=== PATIENT | male | born 1970 | race Two or more races ===

== ENCOUNTER 2020-05-12 16:19 | Emergency (ER) | payer MEDICAID, OTHER ==
[~2020-05-12] VITALS: Ht 167.6 cm; Wt 86.2 kg
[2020-05-12] MEDS ORDERED: HYDROmorphone HCL 2 MG/ML VL IV ONE ×2 (17:30→20:15)
[2020-05-12] MEDS ORDERED: ONDANSETRON HCL 4 MG/2 ML VIAL IV ONE ×2 (17:30→20:15)
[2020-05-12 17:44] LABS: Basophils # (auto) 0.2 10 ^3/uL (0-0.2); Basophils % (auto) 2.7 % (0.0-2.0); Eosinophils # (auto) 0.1 10 ^3/uL (0-0.8); Eosinophils % (auto) 1.3 % (0.0-7.0); Hematocrit 46.1 % (41.0-53.0); Hemoglobin 15.9 g/dL (13.5-17.5); Lymphocytes # (auto) 1.9 10 ^3/uL (0.4-5.4); Lymphocytes % (auto) 20.6 % (10.0-50.0); Mean Corpuscular Hemoglobin 32.6 pg (28.0-32.0); Mean Corpuscular Hgb Conc. 34.5 g/dL (32.0-36.0); Mean Corpuscular Volume 94.5 fL (80.0-100.0); Monocytes # (auto) 0.7 10 ^3/uL (0-1.3); Monocytes % (auto) 7.5 % (0.0-12.0); Neutrophils # (auto) 6.4 10 ^3/uL (1.6-8.6); Neutrophils % (auto) 67.9 % (37.0-80.0); Nucleated Red Blood Cells % 0.2 %; Platelet Count (auto) 309 10^3/uL (140-450); Red Blood Cells 4.87 10^6/uL (4.5-5.90); Red Cell Distribution Width 13.5 % (11.8-14.3); White Blood Cell 9.4 10^3/uL (4.4-10.8)
[2020-05-12 18:01] LABS: Albumin 3.9 g/dL (3.4-5.0); Calcium 8.6 mg/dL (8.5-10.1); Potassium 4.2 mmol/L (3.5-5.1)
[2020-05-12 18:06] LABS: BUN/Creatinine Ratio 17.2; Bilirubin, Total 0.7 mg/dL (0.2-1.0); Total Protein 7.9 g/dL (6.4-8.2)
[2020-05-12 18:07] LABS: Partial Thromboplastin Time 22.1 sec (23.0-31.2)
[2020-05-12 20:52] VITALS: BP 157/93
== END 2020-05-12 21:22 | disposition home or self-care (01) ==
LOC: ER 16:19 → EDBD 16:19 → ER 21:22
DX: S82.891A Other fracture of right lower leg, initial encounter for closed fracture (principal); S82.401A Unspecified fracture of shaft of right fibula, initial encounter for closed fracture; S02.2XXA Fracture of nasal bones, initial encounter for closed fracture; F17.210 Nicotine dependence, cigarettes, uncomplicated; Z88.6 Allergy status to analgesic agent; W01.0XXA Fall on same level from slipping, tripping and stumbling without subsequent striking against object, initial encounter; Y93.89 Activity, other specified; Y92.89 Other specified places as the place of occurrence of the external cause; Y99.8 Other external cause status
CPT/HCPCS: 29515; 36415; 70450; 70486; 72125; 73590; 73610; 80053; 80320; 85025; 85610; 85730; 96374; 96375; 96376; 99285; J1170; J2405

== ENCOUNTER 2020-05-13 22:59 | Emergency (ER) | payer MEDICAID ==
[~2020-05-13] VITALS: Ht 167.6 cm; Wt 86.2 kg
[2020-05-14] MEDS ORDERED: ONDANSETRON HCL 4 MG/2 ML VIAL IV ONE (03:15)
[2020-05-14] MEDS ORDERED: HYDROmorphone HCL 2 MG/ML VL IV ONE (03:15)
[2020-05-14 04:00] VITALS: BP 149/96
== END 2020-05-14 05:40 | disposition psychiatric hospital, planned readmission (93) ==
LOC: ER 22:59
DX: S82.891A Other fracture of right lower leg, initial encounter for closed fracture (principal); S82.831A Other fracture of upper and lower end of right fibula, initial encounter for closed fracture; X58.XXXA Exposure to other specified factors, initial encounter; Y93.89 Activity, other specified; Y92.89 Other specified places as the place of occurrence of the external cause; Y99.8 Other external cause status
CPT/HCPCS: 29515; 96374; 96375; 99284; J1170; J2405

== ENCOUNTER 2020-05-18 10:45 | Inpatient (IN) | payer MEDICAID ==
[~2020-05-18] VITALS: Ht 167.6 cm; Wt 89.2 kg
[2020-05-18 12:40] LABS: Basophils # (auto) 0.1 10 ^3/uL (0-0.2); Basophils % (auto) 1.2 % (0.0-2.0); Eosinophils # (auto) 0.1 10 ^3/uL (0-0.8); Eosinophils % (auto) 2.8 % (0.0-7.0); Hemoglobin 15.9 g/dL (13.5-17.5); Lymphocytes # (auto) 1.6 10 ^3/uL (0.4-5.4); Lymphocytes % (auto) 32.9 % (10.0-50.0); Mean Corpuscular Hemoglobin 33.1 pg (28.0-32.0); Mean Corpuscular Hgb Conc. 35.3 g/dL (32.0-36.0); Mean Corpuscular Volume 93.7 fL (80.0-100.0); Monocytes # (auto) 0.4 10 ^3/uL (0-1.3); Monocytes % (auto) 8.2 % (0.0-12.0); Neutrophils # (auto) 2.6 10 ^3/uL (1.6-8.6); Neutrophils % (auto) 54.9 % (37.0-80.0); Nucleated Red Blood Cells % 0.2 %; Platelet Count (auto) 237 10^3/uL (140-450); Red Cell Distribution Width 13.8 % (11.8-14.3); White Blood Cell 4.8 10^3/uL (4.4-10.8)
[2020-05-18 12:57] LABS: BUN/Creatinine Ratio 9.3; Calcium 8.4 mg/dL (8.5-10.1); Potassium 3.2 mmol/L (3.5-5.1)
[2020-05-18] MEDS ORDERED: POTASSIUM CHL 20 Meq TABLET PO ONE (13:15)
[2020-05-18] MEDS ORDERED: KETOROLAC TROMETH 30 MG/ML 1ML VIAL IV ONE (13:15)
[2020-05-18] MEDS ORDERED: SODIUM CHLORIDE 0.9% 1,000 ML IV ONE (13:15)
[2020-05-18] MEDS ORDERED: DOCUSATE CALCIUM 240 MG CAP PO PRN (14:30)
[2020-05-18] MEDS ORDERED: MORPHINE SULF INJ 2 MG/ML SYRINGE 1ML IV PRN (14:30)
[2020-05-18] MEDS ORDERED: ONDANSETRON HCL 4 MG/2 ML VIAL IV PRN (14:30)
[2020-05-18] MEDS ORDERED: NITROGLYCERIN 0.4 MG SL TAB SL PRN (14:30)
[2020-05-18] MEDS ORDERED: ACETAMINOPHEN 500 MG TAB PO PRN (14:30)
[2020-05-18] MEDS: MORPHINE SULF INJ 2 MG/ML SYRINGE 1ML IV PRN ×2 (14:57→20:59)
[2020-05-18 15:00] LABS: Urine Bacteria NONE SEEN /hpf (None Seen); Urine Blood Negative /uL (Negative); Urine Specific Gravity 1.015 (1.001-1.035); Urine WBC 1 /hpf (0 - 3)
[2020-05-18 15:59] LABS: INR 1.89 (0.9-1.15)
[2020-05-18] MEDS ORDERED: CYCLOBENZAPRINE HCL 10 MG TAB PO ONE (18:00)
[2020-05-18 20:30] VITALS: BP 161/116
[2020-05-18] MEDS: hydrALAZINE HCL 20 MG/ML VL IV PRN (21:00)
[2020-05-18] MEDS: LORazepam 0.5 MG TAB PO PRN (21:00)
[2020-05-19] MEDS ORDERED: SOTA120T39 PO (03:08)
[2020-05-19] MEDS ORDERED: IBUP800T27 PO (03:47)
[2020-05-19 05:30] VITALS: BP 166/100
[2020-05-19 05:59] LABS: Basophils # (auto) 0.1 10 ^3/uL (0-0.2); Basophils % (auto) 0.9 % (0.0-2.0); Eosinophils # (auto) 0.2 10 ^3/uL (0-0.8); Eosinophils % (auto) 2.7 % (0.0-7.0); Hematocrit 42.2 % (41.0-53.0); Hemoglobin 14.9 g/dL (13.5-17.5); Lymphocytes # (auto) 1.7 10 ^3/uL (0.4-5.4); Lymphocytes % (auto) 19.6 % (10.0-50.0); Mean Corpuscular Hemoglobin 33.2 pg (28.0-32.0); Mean Corpuscular Hgb Conc. 35.3 g/dL (32.0-36.0); Mean Corpuscular Volume 94.1 fL (80.0-100.0); Monocytes # (auto) 0.8 10 ^3/uL (0-1.3); Monocytes % (auto) 9.3 % (0.0-12.0); Neutrophils # (auto) 5.9 10 ^3/uL (1.6-8.6); Neutrophils % (auto) 67.5 % (37.0-80.0); Nucleated Red Blood Cells % 0.2 %; Platelet Count (auto) 218 10^3/uL (140-450); Red Blood Cells 4.49 10^6/uL (4.5-5.90); Red Cell Distribution Width 13.5 % (11.8-14.3); White Blood Cell 8.8 10^3/uL (4.4-10.8)
[2020-05-19] MEDS: MORPHINE SULF INJ 2 MG/ML SYRINGE 1ML IV PRN ×4 (06:05→20:33)
[2020-05-19] MEDS: hydrALAZINE HCL 20 MG/ML VL IV PRN ×2 (06:06→14:32)
[2020-05-19 06:10] LABS: Albumin 3.2 g/dL (3.4-5.0); Potassium 3.4 mmol/L (3.5-5.1)
[2020-05-19 06:16] LABS: BUN/Creatinine Ratio 15.7; Bilirubin, Total 2.3 mg/dL (0.2-1.0); Total Protein 6.6 g/dL (6.4-8.2)
[2020-05-19 08:00] VITALS: BP 160/100
[2020-05-19] MEDS ORDERED: ENOXAPARIN SOD 40 MG/0.4 ML SYRINGE SC SCH (10:00)
[2020-05-19] MEDS: PANTOPRAZOLE 40 MG TAB PO SCH (10:10)
[2020-05-19 12:00] VITALS: BP 165/100
[2020-05-19] MEDS ORDERED: hydrALAZINE HCL 25 MG TAB PO ONE (15:15)
[2020-05-19 17:15] VITALS: BP 141/86
[2020-05-19] MEDS: LORazepam 0.5 MG TAB PO PRN (20:33)
[2020-05-19 21:00] VITALS: BP 147/95
[2020-05-19] MEDS ORDERED: hydrALAZINE HCL 25 MG TAB PO SCH (22:00)
[2020-05-20] VITALS (19 sets, daily range): BP systolic 133–168; BP diastolic 64–105
[2020-05-20] MEDS: MORPHINE SULF INJ 2 MG/ML SYRINGE 1ML IV PRN ×5 (01:22→22:33)
[2020-05-20 07:04] LABS: INR 1.02 (0.9-1.15)
[2020-05-20] MEDS ORDERED: ceFAZolin 1GM/50ML 50 ML IV ONE ×2 (07:18→08:11)
[2020-05-20] MEDS ORDERED: BUPIVACAINE 0.5% P/F INJ 10 ML VIAL ONE (07:41)
[2020-05-20] MEDS ORDERED: fentaNYL CITRATE 100 MCG/2 ML VL ONE (07:42)
[2020-05-20] MEDS ORDERED: MORPHINE SULF(PF) 0.5MG/ML 10ML VIAL ONE (07:42)
[2020-05-20] MEDS ORDERED: ONDANSETRON HCL 4 MG/2 ML VIAL ONE (07:43)
[2020-05-20] MEDS ORDERED: KETOROLAC TROMETH 30 MG/ML 1ML VIAL ONE (07:43)
[2020-05-20] MEDS ORDERED: MIDAZOLAM HCL 1MG/1ML-2 ML VIAL ONE (07:43)
[2020-05-20] MEDS ORDERED: GLYCOPYRROLATE 0.2 MG/ML 1ML VIAL ONE (07:43)
[2020-05-20] MEDS ORDERED: PROPOFOL 10 MG/ML 20 ML IV ONE (07:45)
[2020-05-20] MEDS ORDERED: TETRACAINE 1% INJ 2 ML VIAL IJ ONE (07:49)
[2020-05-20 08:03] LABS: Calcium 8.1 mg/dL (8.5-10.1); Potassium 3.3 mmol/L (3.5-5.1)
[2020-05-20 08:06] LABS: BUN/Creatinine Ratio 16.9
[2020-05-20] MEDS ORDERED: diphenhdrAMINE HCL 50 MG/1 ML VL IV PRN (09:15)
[2020-05-20] MEDS ORDERED: ONDANSETRON HCL 4 MG/2 ML VIAL IV PRN ×2 (09:15)
[2020-05-20] MEDS ORDERED: DexAMETHasone SOD PHOS 10MG/1ML VIAL INJ IV PRN (09:15)
[2020-05-20] MEDS ORDERED: NALBUPHINE HCL 10 MG/1ml INJECTION SUBCUT ONE (09:15)
[2020-05-20] MEDS ORDERED: NALOXONE HCL 0.4 MG/ML VIAL IV PRN (09:15)
[2020-05-20] MEDS ORDERED: KETOROLAC TROMETH 30 MG/ML 1ML VIAL IV PRN (09:15)
[2020-05-20] MEDS: hydrALAZINE HCL 20 MG/ML VL IV PRN ×4 (09:28→10:59)
[2020-05-20] MEDS ORDERED: POTASSIUM CHL 20 Meq TABLET PO ONE (10:15)
[2020-05-20] MEDS ORDERED: MULTIPLE VITAMINS W/ MINERALS TAB PO ONE (10:15)
[2020-05-20] MEDS ORDERED: THIAMINE HCL 100 MG TAB PO ONE (10:15)
[2020-05-20] MEDS: PANTOPRAZOLE 40 MG TAB PO SCH (10:58)
[2020-05-20] MEDS ORDERED: DOCUSATE SOD 100 MG CAP PO ONE (11:45)
[2020-05-20] MEDS ORDERED: LACTULOSE 20Gm/30ML SOLN PO PRN (11:45)
[2020-05-20] MEDS ORDERED: LACTULOSE 20Gm/30ML SOLN PO ONE (11:45)
[2020-05-20 11:59] LABS: Amphetamine Screen, Urine NEGATIVE (NEGATIVE); Barbiturate Scree,Urine NEGATIVE (NEGATIVE); Benzodiazephine Screen, Urine POSITIVE (NEGATIVE); Cannabinoid Screen, Urine POSITIVE (NEGATIVE); Cocaine Screen, Urine NEGATIVE (NEGATIVE); Opiate Scree,Urine NEGATIVE (NEGATIVE); Phencyclidine Screen, Urine NEGATIVE (NEGATIVE)
[2020-05-20] MEDS: HYDROcodone-ACET 5/325MG TAB PO PRN ×2 (16:32→20:35)
[2020-05-20] MEDS: hydrALAZINE HCL 25 MG TAB PO SCH (21:28)
[2020-05-20] MEDS: DOCUSATE SOD 100 MG CAP PO SCH (21:29)
[2020-05-20] MEDS: LORazepam 0.5 MG TAB PO PRN (21:40)
[2020-05-21] VITALS (12 sets, daily range): BP systolic 137–158; BP diastolic 79–110
[2020-05-21] MEDS: HYDROcodone-ACET 5/325MG TAB PO PRN ×5 (00:35→23:01)
[2020-05-21] MEDS: MORPHINE SULF INJ 2 MG/ML SYRINGE 1ML IV PRN ×4 (02:35→15:01)
[2020-05-21] MEDS: hydrALAZINE HCL 20 MG/ML VL IV PRN (04:47)
[2020-05-21 06:44] LABS: Basophils # (auto) 0 10 ^3/uL (0-0.2); Basophils % (auto) 0.5 % (0.0-2.0); Eosinophils # (auto) 0.2 10 ^3/uL (0-0.8); Eosinophils % (auto) 2.6 % (0.0-7.0); Hematocrit 41.3 % (41.0-53.0); Hemoglobin 14.3 g/dL (13.5-17.5); Lymphocytes # (auto) 0.9 10 ^3/uL (0.4-5.4); Lymphocytes % (auto) 10.6 % (10.0-50.0); Mean Corpuscular Hgb Conc. 34.6 g/dL (32.0-36.0); Mean Corpuscular Volume 95.4 fL (80.0-100.0); Monocytes % (auto) 11.5 % (0.0-12.0); Neutrophils # (auto) 6.3 10 ^3/uL (1.6-8.6); Neutrophils % (auto) 74.8 % (37.0-80.0); Platelet Count (auto) 173 10^3/uL (140-450); Red Blood Cells 4.33 10^6/uL (4.5-5.90); Red Cell Distribution Width 14.1 % (11.8-14.3); White Blood Cell 8.4 10^3/uL (4.4-10.8)
[2020-05-21 08:19] LABS: Potassium 3.9 mmol/L (3.5-5.1)
[2020-05-21 08:44] LABS: BUN/Creatinine Ratio 20.5; Bilirubin, Total 2.4 mg/dL (0.2-1.0); Calcium 8.9 mg/dL (8.5-10.1); Magnesium 2.1 mg/dL (1.6-2.6)
[2020-05-21] MEDS: hydrALAZINE HCL 25 MG TAB PO SCH (09:02)
[2020-05-21] MEDS: THIAMINE HCL 100 MG TAB PO SCH (09:02)
[2020-05-21] MEDS: DOCUSATE SOD 100 MG CAP PO SCH ×2 (09:03→21:17)
[2020-05-21] MEDS: MULTIPLE VITAMINS W/ MINERALS TAB PO SCH (09:03)
[2020-05-21] MEDS: PANTOPRAZOLE 40 MG TAB PO SCH (09:03)
[2020-05-21] MEDS ORDERED: SOTALOL HCL 80 MG TAB PO ONE (10:45)
[2020-05-21] MEDS: HYDROmorphone HCL 2 MG/ML VL IV PRN ×2 (17:02→21:05)
[2020-05-21] MEDS: KETOROLAC TROMETH 30 MG/ML 1ML VIAL IV PRN (20:07)
[2020-05-21] MEDS: LORazepam 0.5 MG TAB PO PRN (20:17)
[2020-05-21] MEDS: SOTALOL HCL 80 MG TAB PO SCH (21:17)
[2020-05-22] VITALS (7 sets, daily range): BP systolic 131–158; BP diastolic 79–119
[2020-05-22] MEDS: HYDROmorphone HCL 2 MG/ML VL IV PRN ×5 (01:07→22:33)
[2020-05-22] MEDS: HYDROcodone-ACET 5/325MG TAB PO PRN ×4 (03:01→20:02)
[2020-05-22] MEDS: DOCUSATE SOD 100 MG CAP PO SCH ×2 (09:35→22:21)
[2020-05-22] MEDS: MULTIPLE VITAMINS W/ MINERALS TAB PO SCH (09:37)
[2020-05-22] MEDS: PANTOPRAZOLE 40 MG TAB PO SCH (09:38)
[2020-05-22] MEDS: THIAMINE HCL 100 MG TAB PO SCH (09:38)
[2020-05-22] MEDS: SOTALOL HCL 80 MG TAB PO SCH ×2 (09:40→22:13)
[2020-05-22] MEDS ORDERED: ERGOCALCIFEROL 50,000 UNIT(1.25MG) CAP PO SCH (12:30)
[2020-05-22] MEDS ORDERED: SOTALOL HCL 80 MG TAB PO ONE (14:30)
[2020-05-22] MEDS: LORazepam 0.5 MG TAB PO PRN (20:01)
[2020-05-23] MEDS: KETOROLAC TROMETH 30 MG/ML 1ML VIAL IV PRN (00:31)
[2020-05-23] MEDS: HYDROcodone-ACET 5/325MG TAB PO PRN ×4 (01:16→23:16)
[2020-05-23] MEDS: HYDROmorphone HCL 2 MG/ML VL IV PRN ×2 (03:30→19:52)
[2020-05-23 05:00] VITALS: BP 136/86
[2020-05-23 09:00] VITALS: BP 133/87
[2020-05-23] MEDS: THIAMINE HCL 100 MG TAB PO SCH (09:48)
[2020-05-23] MEDS: DOCUSATE SOD 100 MG CAP PO SCH ×2 (09:49→21:41)
[2020-05-23] MEDS: SOTALOL HCL 80 MG TAB PO SCH ×2 (09:49→21:41)
[2020-05-23] MEDS: PANTOPRAZOLE 40 MG TAB PO SCH (09:49)
[2020-05-23] MEDS: MULTIPLE VITAMINS W/ MINERALS TAB PO SCH (09:49)
[2020-05-23 13:00] VITALS: BP 125/76
[2020-05-23 16:44] VITALS: BP 137/93
[2020-05-23] MEDS: LORazepam 0.5 MG TAB PO PRN (21:42)
[2020-05-23 22:00] VITALS: BP 130/84
[2020-05-24] MEDS: HYDROmorphone HCL 2 MG/ML VL IV PRN ×3 (02:32→22:12)
[2020-05-24 05:00] VITALS: BP 135/98
[2020-05-24 09:00] VITALS: BP 136/90
[2020-05-24] MEDS: THIAMINE HCL 100 MG TAB PO SCH (10:30)
[2020-05-24] MEDS: PANTOPRAZOLE 40 MG TAB PO SCH (10:31)
[2020-05-24] MEDS: MULTIPLE VITAMINS W/ MINERALS TAB PO SCH (10:31)
[2020-05-24] MEDS: SOTALOL HCL 80 MG TAB PO SCH ×2 (10:31→22:00)
[2020-05-24] MEDS: DOCUSATE SOD 100 MG CAP PO SCH ×2 (10:31→22:00)
[2020-05-24 13:04] VITALS: BP 128/89
[2020-05-24] MEDS: HYDROcodone-ACET 5/325MG TAB PO PRN (14:45)
[2020-05-24 17:13] VITALS: BP 127/89
[2020-05-24] MEDS: KETOROLAC TROMETH 30 MG/ML 1ML VIAL IV PRN (18:48)
[2020-05-24 22:00] VITALS: BP 128/81
[2020-05-24] MEDS: LORazepam 0.5 MG TAB PO PRN (22:38)
[2020-05-25] MEDS: HYDROcodone-ACET 5/325MG TAB PO PRN (00:30)
[2020-05-25 05:00] VITALS: BP 131/93
== END 2020-05-25 10:35 | disposition home or self-care (01) | DRG 313 ==
LOC: ER 10:45 → OVERFLOW 10:46 → EAST 19:35 → DOU IN ADS 05-19 05:48
PROVIDERS: ADMIT Family Medicine; ATTEND Internal Medicine
PROC: 0QSJ04Z Reposition Right Fibula with Internal Fixation Device, Open Approach (ICD-10-PCS; 2020-05-20)
PROC: 0SSF04Z Reposition Right Ankle Joint with Internal Fixation Device, Open Approach (ICD-10-PCS; principal; 2020-05-20 07:45)
DX: S82.431A Displaced oblique fracture of shaft of right fibula, initial encounter for closed fracture (principal); S82.61XA Displaced fracture of lateral malleolus of right fibula, initial encounter for closed fracture; M24.271 Disorder of ligament, right ankle; S02.2XXA Fracture of nasal bones, initial encounter for closed fracture; S00.83XA Contusion of other part of head, initial encounter; S82.391A Other fracture of lower end of right tibia, initial encounter for closed fracture; E87.6 Hypokalemia; R73.9 Hyperglycemia, unspecified; I10 Essential (primary) hypertension; E55.9 Vitamin D deficiency, unspecified; E66.9 Obesity, unspecified; E78.5 Hyperlipidemia, unspecified; F10.10 Alcohol abuse, uncomplicated; F12.90 Cannabis use, unspecified, uncomplicated; F17.210 Nicotine dependence, cigarettes, uncomplicated; M17.10 Unilateral primary osteoarthritis, unspecified knee; Z91.19 Patient's noncompliance with other medical treatment and regimen; Z20.822 Contact with and (suspected) exposure to COVID-19; Z88.8 Allergy status to other drugs, medicaments and biological substances; Z68.31 Body mass index [BMI] 31.0-31.9, adult; W18.39XA Other fall on same level, initial encounter; Y93.89 Activity, other specified; Y92.89 Other specified places as the place of occurrence of the external cause; Y99.8 Other external cause status
CPT/HCPCS: 36415; 71045; 73721; 80048; 80053; 80061; 80307; 81001; 82247; 82306; 83036; 83735; 84443; 85025; 85610; 87426; 93306; 96361; 96374; 96375; G0378; J0690; J1885; J2250; J2405; J2704; J3490

== ENCOUNTER 2020-05-30 08:58 | Inpatient (IN) | payer MEDICAID ==
[~2020-05-30] VITALS: Ht 167.6 cm; Wt 64.4 kg
[~2020-05-30 08:58] MED LIST: IBUP800T27 PO; SOTA120T39 PO
[2020-05-30] MEDS ORDERED: ONDANSETRON HCL 4 MG/2 ML VIAL IV ONE (09:15)
[2020-05-30] MEDS ORDERED: SODIUM CHLORIDE 0.9% 1,000 ML IV ONE ×2 (09:15)
[2020-05-30] MEDS ORDERED: KETOROLAC TROMETH 30 MG/ML 1ML VIAL IV ONE (09:15)
[2020-05-30 09:23] LABS: Eosinophils # (auto) 0.1 10 ^3/uL (0-0.8); Eosinophils % (auto) 1.1 % (0.0-7.0); Monocytes # (auto) 0.7 10 ^3/uL (0-1.3); Red Cell Distribution Width 14.3 % (11.8-14.3)
[2020-05-30 09:29] LABS: Basophils # (auto) 0.1 10 ^3/uL (0-0.2); Basophils % (auto) 1.3 % (0.0-2.0); Hematocrit 41.3 % (41.0-53.0); Hemoglobin 14.5 g/dL (13.5-17.5); Lymphocytes # (auto) 1.7 10 ^3/uL (0.4-5.4); Mean Corpuscular Hemoglobin 32.7 pg (28.0-32.0); Mean Corpuscular Hgb Conc. 35.1 g/dL (32.0-36.0); Mean Corpuscular Volume 93.2 fL (80.0-100.0); Monocytes % (auto) 7.4 % (0.0-12.0); Neutrophils # (auto) 6.5 10 ^3/uL (1.6-8.6); Neutrophils % (auto) 71.2 % (37.0-80.0); Red Blood Cells 4.43 10^6/uL (4.5-5.90); White Blood Cell 9.2 10^3/uL (4.4-10.8)
[2020-05-30 09:45] LABS: Albumin 3.8 g/dL (3.4-5.0)
[2020-05-30 09:48] LABS: BUN/Creatinine Ratio 20.2; Total Protein 7.7 g/dL (6.4-8.2)
[2020-05-30] MEDS ORDERED: TAMSULOSIN HYDROCHLORIDE 0.4 MG CAP PO ONE (11:30)
[2020-05-30] MEDS ORDERED: hydrALAZINE HCL 20 MG/ML VL IV PRN (14:15)
[2020-05-30] MEDS ORDERED: MORPHINE SULFATE INJECTION 2 MG/ML SYRG IV PRN ×2 (14:15)
[2020-05-30] MEDS ORDERED: ACETAMINOPHEN 500 MG TAB PO PRN (14:15)
[2020-05-30] MEDS ORDERED: NITROGLYCERIN 0.4 MG SL TAB SL PRN (14:15)
[2020-05-30] MEDS: TAMSULOSIN HYDROCHLORIDE 0.4 MG CAP PO SCH (14:15)
[2020-05-30] MEDS ORDERED: ONDANSETRON HCL 4 MG/2 ML VIAL IV PRN (14:15)
[2020-05-30] MEDS: SODIUM CHLORIDE 0.9% 1,000 ML IV SCH ×2 (14:32→22:21)
[2020-05-30] MEDS: HYDROmorphone HCL 2 MG/ML VL IV PRN ×2 (15:54→20:14)
[2020-05-30] MEDS: cefTRIAXone 1GM/50ML D5W 50 ML IV SCH (16:00)
[2020-05-30] MEDS: HYDROcodone-ACET 5/325MG TAB PO PRN (18:55)
[2020-05-30 22:08] VITALS: BP 128/71
[2020-05-30] MEDS ORDERED: TEMAZEPAM 15 MG CAP PO ONE (23:00)
[2020-05-31] MEDS: HYDROmorphone HCL 2 MG/ML VL IV PRN ×3 (01:00→12:52)
[2020-05-31 01:48] LABS: Urine Bacteria FEW /hpf (None Seen); Urine Blood Negative /uL (Negative); Urine Hyaline Cast MANY /lpf (0 - 2); Urine Mucus FEW (None Seen); Urine Specific Gravity 1.023 (1.001-1.035); Urine WBC 3 /hpf (0 - 3)
[2020-05-31 05:00] VITALS: BP 116/80
[2020-05-31 06:03] LABS: Basophils # (auto) 0 10 ^3/uL (0-0.2); Basophils % (auto) 0.3 % (0.0-2.0); Eosinophils # (auto) 0.2 10 ^3/uL (0-0.8); Eosinophils % (auto) 2.5 % (0.0-7.0); Hematocrit 37.5 % (41.0-53.0); Hemoglobin 13.3 g/dL (13.5-17.5); Lymphocytes # (auto) 2.5 10 ^3/uL (0.4-5.4); Lymphocytes % (auto) 37.2 % (10.0-50.0); Mean Corpuscular Hemoglobin 33.3 pg (28.0-32.0); Mean Corpuscular Hgb Conc. 35.6 g/dL (32.0-36.0); Mean Corpuscular Volume 93.6 fL (80.0-100.0); Monocytes # (auto) 0.7 10 ^3/uL (0-1.3); Monocytes % (auto) 10.4 % (0.0-12.0); Neutrophils # (auto) 3.4 10 ^3/uL (1.6-8.6); Neutrophils % (auto) 49.6 % (37.0-80.0); Nucleated Red Blood Cells % 0.1 %; Red Cell Distribution Width 14.3 % (11.8-14.3); White Blood Cell 6.8 10^3/uL (4.4-10.8)
[2020-05-31] MEDS: SODIUM CHLORIDE 0.9% 1,000 ML IV SCH ×2 (06:15→14:15)
[2020-05-31 06:19] LABS: Calcium 8.3 mg/dL (8.5-10.1); Potassium 4.1 mmol/L (3.5-5.1)
[2020-05-31 06:22] LABS: BUN/Creatinine Ratio 24.3
[2020-05-31 08:46] VITALS: BP 158/96
[2020-05-31] MEDS: cefTRIAXone 1GM/50ML D5W 50 ML IV SCH (08:55)
[2020-05-31] MEDS ORDERED: FAMOTIDINE 20 MG TAB PO SCH (10:00)
[2020-05-31] MEDS: HYDROcodone-ACET 5/325MG TAB PO PRN (11:32)
[2020-05-31] MEDS ORDERED: IOPAMIDOL 76 % (ISOVUE-370) 100ML BTL IV ONE (12:28)
[2020-05-31 13:06] VITALS: BP 141/64
[2020-05-31] MEDS: TAMSULOSIN HYDROCHLORIDE 0.4 MG CAP PO SCH (15:06)
== END 2020-05-31 17:41 | disposition home or self-care (01) | DRG 465 ==
LOC: ER 08:58 → OVERFLOW 08:59 → EAST 18:41
PROVIDERS: ADMIT Nurse Practitioner Acute Care; ATTEND Internal Medicine
DX: N13.2 Hydronephrosis with renal and ureteral calculous obstruction (principal); U07.1 COVID-19; K86.1 Other chronic pancreatitis; I10 Essential (primary) hypertension; M81.0 Age-related osteoporosis without current pathological fracture; F17.210 Nicotine dependence, cigarettes, uncomplicated; N43.3 Hydrocele, unspecified; N50.3 Cyst of epididymis; Z87.442 Personal history of urinary calculi; Z88.8 Allergy status to other drugs, medicaments and biological substances; E66.9 Obesity, unspecified; Z68.30 Body mass index [BMI] 30.0-30.9, adult
CPT/HCPCS: 36415; 71045; 74176; 74177; 76870; 80048; 80053; 81001; 83970; 84443; 85025; 87081; 87086; 87426; 93005; 96361; 96365; 96375; G0378; J0696; J1885; J2405

== ENCOUNTER 2020-07-20 10:36 | Emergency (ER) | payer MEDICAID ==
[~2020-07-20] VITALS: Ht 167.6 cm; Wt 90.7 kg
[2020-07-20 11:02] VITALS: BP 123/84
[2020-07-20 11:29] LABS: Basophils # (auto) 0.1 10 ^3/uL (0-0.2); Basophils % (auto) 0.8 % (0.0-2.0); Eosinophils # (auto) 0.3 10 ^3/uL (0-0.8); Eosinophils % (auto) 3.3 % (0.0-7.0); Hematocrit 42.8 % (41.0-53.0); Hemoglobin 14.8 g/dL (13.5-17.5); Lymphocytes # (auto) 1.8 10 ^3/uL (0.4-5.4); Lymphocytes % (auto) 18.4 % (10.0-50.0); Mean Corpuscular Hemoglobin 32.6 pg (28.0-32.0); Mean Corpuscular Hgb Conc. 34.5 g/dL (32.0-36.0); Mean Corpuscular Volume 94.4 fL (80.0-100.0); Monocytes # (auto) 0.8 10 ^3/uL (0-1.3); Monocytes % (auto) 8.4 % (0.0-12.0); Neutrophils # (auto) 6.8 10 ^3/uL (1.6-8.6); Neutrophils % (auto) 69.1 % (37.0-80.0); Platelet Count (auto) 202 10^3/uL (140-450); Red Blood Cells 4.53 10^6/uL (4.5-5.90); Red Cell Distribution Width 14.8 % (11.8-14.3); White Blood Cell 9.9 10^3/uL (4.4-10.8)
[2020-07-20 11:41] LABS: Albumin 3.9 g/dL (3.4-5.0); Calcium 8.9 mg/dL (8.5-10.1); Potassium 4.2 mmol/L (3.5-5.1)
[2020-07-20 11:44] LABS: Bilirubin, Total 1.1 mg/dL (0.2-1.0); Total Protein 7.4 g/dL (6.4-8.2)
== END 2020-07-20 13:51 | disposition home or self-care (01) ==
LOC: ER 10:36
DX: R68.2 Dry mouth, unspecified (principal); R25.3 Fasciculation; F17.210 Nicotine dependence, cigarettes, uncomplicated; F12.10 Cannabis abuse, uncomplicated; F31.9 Bipolar disorder, unspecified; I10 Essential (primary) hypertension; Z88.6 Allergy status to analgesic agent; Z88.8 Allergy status to other drugs, medicaments and biological substances
CPT/HCPCS: 36415; 80053; 80178; 85025

== ENCOUNTER 2021-01-10 20:12 | Emergency (ER) | payer MEDICAID ==
[~2021-01-10] VITALS: Ht 167.6 cm; Wt 100.7 kg
[2021-01-10] MEDS ORDERED: ACCU-CHEK COMFORT CURVE STRIP VI ONE (20:30)
[2021-01-10 20:59] LABS: Basophils # (auto) 0.1 10 ^3/uL (0-0.2); Basophils % (auto) 0.7 % (0.0-2.0); Eosinophils # (auto) 0.1 10 ^3/uL (0-0.8); Hematocrit 42.9 % (41.0-53.0); Hemoglobin 14.8 g/dL (13.5-17.5); Lymphocytes # (auto) 1.7 10 ^3/uL (0.4-5.4); Mean Corpuscular Hemoglobin 31.5 pg (28.0-32.0); Mean Corpuscular Hgb Conc. 34.5 g/dL (32.0-36.0); Mean Corpuscular Volume 91.2 fL (80.0-100.0); Monocytes # (auto) 1.1 10 ^3/uL (0-1.3); Monocytes % (auto) 14.3 % (0.0-12.0); Neutrophils # (auto) 4.7 10 ^3/uL (1.6-8.6); Nucleated Red Blood Cells % 0.1 %; Red Cell Distribution Width 14.2 % (11.8-14.3); White Blood Cell 7.5 10^3/uL (4.4-10.8)
[2021-01-10 21:18] LABS: Albumin 4.1 g/dL (3.4-5.0); Calcium 8.6 mg/dL (8.5-10.1); Potassium 4.1 mmol/L (3.5-5.1)
[2021-01-10 21:21] LABS: BUN/Creatinine Ratio 15.8; Bilirubin, Total 1.8 mg/dL (0.2-1.0); Total Protein 7.4 g/dL (6.4-8.2)
[2021-01-10] MEDS ORDERED: LORazepam 0.5 MG TAB PO ONE (21:45)
[2021-01-10 21:49] LABS: Magnesium 1.8 mg/dL (1.6-2.6)
[2021-01-10 21:56] LABS: Blood Alcohol < 3.0 mg/dL (0-5); Lipase 341 U/L (73-393)
[2021-01-11] MEDS ORDERED: SODIUM CHLORIDE 0.9% 1,000 ML IV ONE (03:45)
[2021-01-11 10:19] VITALS: BP 117/73
== END 2021-01-11 11:26 | disposition home or self-care (01) ==
LOC: EDBD 20:12 → ER 20:12
DX: R55 Syncope and collapse (principal); R45.851 Suicidal ideations; E11.9 Type 2 diabetes mellitus without complications; I10 Essential (primary) hypertension; F17.210 Nicotine dependence, cigarettes, uncomplicated; Z79.1 Long term (current) use of non-steroidal anti-inflammatories (NSAID); Z79.899 Other long term (current) drug therapy; Z88.8 Allergy status to other drugs, medicaments and biological substances; Z59.00 Homelessness unspecified; Z20.822 Contact with and (suspected) exposure to COVID-19
CPT/HCPCS: 36415; 71045; 80053; 80320; 83690; 83735; 83880; 84484; 85025; 87426; 96360; 99284; J7030